=== PATIENT | female | born 1945 | race Caucasian/White ===

== ENCOUNTER → 2017-11-28 15:03 | Outpatient (CLI) | payer MEDICARE, OTHER, SELFPAY ==
--- NOTE | 2017-11-28 15:09 | CT_ITS ---
EXAM: CT LUNG LOW DOSE WO CONTRAST COMPARISON: 11/23/2016 HISTORY: Current smoker with greater than 30 pack-year smoking history asymptomatic ORDERING PHYSICIAN: Ward Kennedy MD PATIENT AGE: 72 years TECHNIQUE: The exam was performed on a GE Light Speed [address] scanner using 2.94 mGy CTDI. A low dose helical CT CHEST was performed on a multi-detector scanner The LDCT was performed in a facility that meets the criteria for the screening program. Data regarding this exam was submitted to ACR which is an approved registry. The order for this exam indicates that it came as a result of a lung cancer screening counseling shared decision-making visit that included all the elements required of such a visit including smoking cessation. The radiologist interpreting this exam meets the [facility] criteria for the LDCT lung cancer screening program. The exam is reported using the Lung-RADS classification scale and reported to the ACR registry. NOTE: THIS STUDY WAS PERFORMED FOR THE SPECIFIC PURPOSES OF LUNG CANCER SCREENING AND IS NOT AN ALTERNATIVE TO DIAGNOSTIC CHEST CT. RADIATION DOSE: CTDI vol(CT dose Index-volume) = 2.94mG DLP (Dose Length Product) = 101.77 mGcm FINDINGS: Centrilobular emphysematous changes are once again noted with scattered areas of pulmonary fibrosis as previously described. The previously noted parenchymal opacity in the right upper lobe posteriorly in the apex is unchanged. Parenchymal opacity in the right upper lobe posteriorly at 13 x 9 mm not significant change. Scattered parenchymal opacities previously described are unchanged. No new suspicious nodular opacities are present. No effusions or infiltrates. IMPRESSION: 1. Lung RADS Category: 3, probably benign 2. Other findings: Centrilobular emphysema RECOMMENDATIONS: 12 month LDCT follow-up
== END ==
PROVIDERS: Family Provider Family Medicine; PCP Family Medicine; Visit Provider Family Medicine
DX: Z12.2 Encounter for screening for malignant neoplasm of respiratory organs (principal); Z87.891 Personal history of nicotine dependence

== ENCOUNTER → 2018-11-26 12:28 | Outpatient (CLI) | payer MEDICARE, OTHER, SELFPAY ==
--- NOTE | 2018-11-26 12:34 | XR_ITS ---
XR DEXA axial skeleton HISTORY: ITS.REASON: OSTEOPAROSIS ORDERING PHYSICIAN: Ward Kennedy MD PATIENT AGE: 73 years COMPARISON: 11/24/2016 FINDINGS: The BMD measured at the Total right femoral neck is 0.535 g/cm squared with a T score of -3.8. This is considered Osteoporotic according to the World Health Organization criteria. Fracture risk is High. Treatment is advised. L1 L4 density has a T score of -0.8 and has increased by 13%. The mean density of the hips has increased by 2%. IMPRESSION: Osteoporosis with high fracture risk. Treatment is advised. Suggest follow-up exam November 2019
--- NOTE | 2018-11-26 12:34 | CT_ITS ---
CT lung screening EXAM: CT LUNG LOW DOSE WO CONTRAST HISTORY: 30 pack-year smoking history asymptomatic for lung cancer ITS.REASON: HX TOBACCO USE ORDERING PHYSICIAN: Ward Kennedy MD PATIENT AGE: 73 years COMPARISON: 11/28/2017 TECHNIQUE: The exam was performed on a GE Light Speed [address] scanner using 2.90 mGy CTDI. A low dose helical CT CHEST was performed on a multi-detector scanner. All CT scans at the facility use one or more dose reduction, viz: automated exposure control, ma/kV adjustment per patient size (including targeted exams where dose is matched to indication, i.e. head), or iterative reconstruction technique. The LDCT was performed in a facility that meets the criteria for the screening program. Data regarding this exam was submitted to ACR which is an approved registry. The order for this exam indicates that it came as a result of a lung cancer screening counseling shard decision-making visit that included all the elements required of such a visit including smoking cessation. The radiologist interpreting this exam meets the CMS criteria for the LDCT lung cancer screening program. The exam is reported using the Lung-RADS classification scale and reported to the ACR registry. NOTE: This study was performed for the specific purposes of lung cancer screening and is not an alternative to diagnostic chest CT. RADIATION DOSE: CTDI vol(CT dose Index-volume) = 2.90mG DLP (Dose Length Product) = mGcm FINDINGS: Scattered fibrotic changes are present as before. There is a stable irregular opacity at approximately 13 x 10 mm in the superior segment of the right upper lobe consistent with an area of fibrosis. Chronic scarring is present in the lung bases. There is volume loss within the lingula and right middle lobe medial aspect. Scattered stable nodular opacities are noted which are felt to be due to parenchymal fibrotic change. There is a 4 mm nodular opacity left upper lobe medially series 4 #39 and an additional 4 mm nodule left upper lobe medially series 4 image #32. These are nonspecific. No new suspicious nodules are evident. There is hyperinflation with attenuation of peripheral pulmonary vessels consistent with COPD with centrilobular disease IMPRESSION: 1. Lung RADS Category: 3, probably benign 2. Other findings: Centrilobular emphysema with scattered fibrotic changes RECOMMENDATIONS: 12 month LDCT follow-up
== END ==
PROVIDERS: PCP Family Medicine; Visit Provider Family Medicine
DX: Z12.2 Encounter for screening for malignant neoplasm of respiratory organs (principal); Z87.891 Personal history of nicotine dependence; M81.0 Age-related osteoporosis without current pathological fracture
CPT/HCPCS: 77080

== ENCOUNTER → 2020-12-04 14:22 | Outpatient (CLI) | payer MEDICARE, OTHER, SELFPAY ==
--- NOTE | 2020-12-04 14:26 | XR_ITS ---
PROCEDURE: XR DEXA AXIAL SKELETON CLINICAL HISTORY: AGE-RELATED OSTEOPOROSIS W/O CURRENT FRACTURE COMPARISON: CR DEXAAX XR DEXA axial skeleton from 11/26/2018 FINDINGS: The right hip BMD is 0.416 with a T-score of -3.9. The left hip BMD is 0.455 with a T-score of -3.6. The lumbar spine BMD is 1.000 with a T-score of -0.4. Previously the lowest density was in the right femur with a T-score -3.8 IMPRESSION: This patient is considered osteoporotic according to the World Health Organization criteria. Fracture risk is high. Treatment is advised. Based on these results a follow-up exam is recommended in 1 year. Dictated by: Deniz Sesay MD 12/05/2020 09:07 Deniz Sesay MD in [place] 12/05/2020 09:07
--- NOTE | 2020-12-04 14:27 | CT_ITS ---
PROCEDURE: CT LUNG SCREENING CLINICAL INDICATION: HX OF NICOTINE DEPENDENCE 40 pack-year smoking history COMPARISON: CT LUNGSCREEN CT lung screening from 11/26/2018 TECHNIQUE: The exam was performed on a GE Light Speed [address] scanner using 2.90 mGy CTDI. A low dose helical CT CHEST was performed on a multi-detector scanner. All CT scans at the facility use one or more dose reduction, viz: automated exposure control, ma/kV adjustment per patient size (including targeted exams where dose is matched to indication, i.e. head), or iterative reconstruction technique. The LDCT was performed in a facility that meets the criteria for the screening program. Data regarding this exam was submitted to ACR which is an approved registry. The order for this exam indicates that it came as a result of a lung cancer screening counseling shard decision-making visit that included all the elements required of such a visit including smoking cessation. The radiologist interpreting this exam meets the CMS criteria for the LDCT lung cancer screening program. The exam is reported using the Lung-RADS classification scale and reported to the ACR registry. NOTE: This study was performed for the specific purposes of lung cancer screening and is not an alternative to diagnostic chest CT. RADIATION DOSE: CTDI vol(CT dose Index-volume) = 2.90mG DLP (Dose Length Product) = 104.46 mGcm FINDINGS: COPD with centrilobular emphysema and scattered areas of scarring. Stable 15 mm irregular opacity in the superior segment the right lower lobe consistent with an area of scarring. No new suspicious nodules are identified. OTHER FINDINGS: No other pertinent findings evident. IMPRESSION: Lung-RADS Category 2 Benign Appearance or Behavior Follow-up: Continue annual screening with LDCT in 12 months Dictated by: Deniz Sesay MD 12/06/2020 10:02 Deniz Sesay MD in [place] 12/06/2020 10:02
== END ==
PROVIDERS: PCP Family Medicine; Visit Provider Family Medicine
DX: M81.0 Age-related osteoporosis without current pathological fracture (principal); Z87.891 Personal history of nicotine dependence; Z12.2 Encounter for screening for malignant neoplasm of respiratory organs
CPT/HCPCS: 71271; 77080

== ENCOUNTER → 2020-12-15 11:19 | Outpatient (CLI) | payer MEDICARE, OTHER, SELFPAY ==
[2020-12-15 13:48] LABS: Coronavirus 19 IgG Antibody Positive (Negative); Coronavirus 19 IgM Antibody Negative (Negative)
== END ==
PROVIDERS: Visit Provider Surgery
DX: Z01.818 Encounter for other preprocedural examination (principal); Z20.822 Contact with and (suspected) exposure to COVID-19; Z12.11 Encounter for screening for malignant neoplasm of colon; Z86.010 Personal history of colon polyps
CPT/HCPCS: 36415; 86328

== ENCOUNTER 2020-12-17 08:22 | Day surgery (SDC) | payer MEDICARE, OTHER, SELFPAY ==
[2020-12-14 10:56] VITALS: BMI 19.3
[2020-12-17] VITALS (8 sets, daily range): BP systolic 90–129; BP diastolic 48–78; PULSE 57–67; RESP 16–18; TEMP 35.9–36.2; O2SAT 94–98
--- NOTE | 2020-12-17 10:43 | HMH.SCOPE ---
- Procedure: Date: 12/17/20 Patient Date of :: 1945 Procedure Performed:: Colonoscopy with biopsy Indications:: History of polyps. Status post right hemicolectomy (2015) secondary to large adenomatous polyp not amenable to colonoscopic removal. Performing Provider:: Artis Singh MD Referring Provider:: . Sedation:: Monitored anesthesia care Procedure:: After informed consent was obtained the patient was taken to the endoscopy suite. Sedation ensued after the patient was transferred to the left lateral decubitus position. Pulse, blood pressure, and oxygen saturation were monitored throughout the procedure. Digital rectal exam revealed no significant abnormality. The colonoscope was placed in position. The entire remaining colon was evaluated. The colonoscope was carefully removed and the patient was transferred to recovery in stable condition. Please see findings and specimens below for detail. Findings:: Bowel preparation moderate Significant sigmoid diverticulosis Hemorrhoidal cushions/tags Fairly severe spasticity and lack of relaxation of the sigmoid colon Anastomosis appeared normal Hyperplastic-appearing polyps at 15 cm (cluster) Specimens:: Multiple biopsies of hyperplastic-appearing polyps around 15 cm Recommendations:: Timing of repeat colonoscopy is pending pathology but will likely be between 1-2 years secondary to history of large complex polyp requiring right hemicolectomy, moderate bowel preparation, and sigmoid spasticity/lack of relaxation. Complications:: No immediate Estimated blood obtained (mL): 1
--- NOTE | 2020-12-17 13:52 | HMH.ANESCL ---
[facility] Anesthesia Checklist - Patient Identification Patient Identification: Arm Band - Structural Data Admitted From: Home Planned Operative Procedure/s: Colonoscopy Consent for Planned Operative Procedure(s) Verified: Yes Verified Documents: Surgical Consent, History and Physical - Airway Assessment C-Spine Mobility Assessed: Yes TMJ Mobility Assessed: Yes Dentition: Good Dentition - Neurological Assessment Level of Consciousness: Awake, Alert - Anesthesia Plan Anesthesia Risk discussed: Yes Anesthesia Plan: Verified ASA Class: II Anesthesia Type: [facility] History Medical History: Reports:: Hypertension Denies:: Cancer, Diabetes Mellitus Type 1, Diabetes Mellitus Type 2, Internal Pacemaker, MRSA, Seizures *Have you ever received a pneumonia vaccine?: Yes *Have you received a flu vaccine this season?: Yes Anesthesia experience/problems:: None Other Surgeries: Yes: Colonoscopy. No: Pacemaker Amputation: No Fractures: No - *Social History Last grade of school completed: Some college Smoking Status: Former smoker Tobacco Type: cigarettes # Packs/Day (cigarettes): 1 #Yrs smoked (if former smoker): 1 Alcohol Intake: never Alcohol Intake Frequency:: 0-2 drinks per day Substance Use Type: denies use *Occupational Status:: employed, retired Housing: house Household Members: spouse *Travel in the last 8 weeks: None Family Hx:: Cancer, Coronary Artery Disease, Hypertension
== END 2020-12-17 11:40 | disposition home or self-care (01) ==
LOC: OUTP 08:26
PROVIDERS: PCP Family Medicine; Visit Provider Surgery
PROC: 0DJD8ZZ Inspection of Lower Intestinal Tract, Via Natural or Artificial Opening Endoscopic (ICD-10-PCS; CPT 45380; principal; 2020-12-17 09:30)
DX: K57.30 Diverticulosis of large intestine without perforation or abscess without bleeding (principal); Z12.11 Encounter for screening for malignant neoplasm of colon; K64.0 First degree hemorrhoids; K58.9 Irritable bowel syndrome, unspecified; K62.1 Rectal polyp; Z86.010 Personal history of colon polyps; Z90.49 Acquired absence of other specified parts of digestive tract; I10 Essential (primary) hypertension; Z87.891 Personal history of nicotine dependence; Z80.9 Family history of malignant neoplasm, unspecified; Z82.49 Family history of ischemic heart disease and other diseases of the circulatory system; Z79.899 Other long term (current) drug therapy
CPT/HCPCS: 45380; 88305; J1610

== ENCOUNTER 2021-03-15 08:50 | Outpatient (CLI) | payer MEDICARE, OTHER, SELFPAY ==
[2021-03-15 09:00] VITALS: BP 121/70; PULSE 66; RESP 18; TEMP 36.4; O2SAT 98
== END 2021-03-15 09:27 | disposition home or self-care (01) ==
LOC: INF 08:50
PROVIDERS: Visit Provider Family Medicine
DX: M81.0 Age-related osteoporosis without current pathological fracture (principal)
CPT/HCPCS: 96372; J3111

== ENCOUNTER 2021-04-12 08:34 | Outpatient (CLI) | payer MEDICARE, OTHER, SELFPAY ==
[2021-04-12 08:42] VITALS: BP 139/73; PULSE 59; RESP 20; TEMP 36.9; O2SAT 97
--- NOTE | 2021-04-12 09:23 | PC.NURSE ---
injection given in each arm
== END 2021-04-12 09:23 | disposition home or self-care (01) ==
LOC: INF 08:34
PROVIDERS: Visit Provider Family Medicine
DX: M81.0 Age-related osteoporosis without current pathological fracture (principal)
CPT/HCPCS: 96372; J3111

== ENCOUNTER 2021-05-17 08:42 | Outpatient (CLI) | payer MEDICARE, OTHER, SELFPAY ==
[2021-05-17 09:08] VITALS: BP 131/65; PULSE 75; RESP 18; TEMP 36.3; O2SAT 96
== END 2021-05-17 09:29 | disposition home or self-care (01) ==
LOC: INF 08:45
PROVIDERS: PCP Family Medicine; Visit Provider Family Medicine
DX: M81.0 Age-related osteoporosis without current pathological fracture (principal)
CPT/HCPCS: 96372; J3111

== ENCOUNTER 2021-06-17 08:29 | Outpatient (CLI) | payer MEDICARE, OTHER, SELFPAY ==
[2021-06-17 08:58] VITALS: BP 144/76; PULSE 66; RESP 18; O2SAT 97
== END 2021-06-17 08:58 | disposition home or self-care (01) ==
LOC: INF 08:31
PROVIDERS: PCP Family Medicine; Visit Provider Family Medicine
DX: M81.0 Age-related osteoporosis without current pathological fracture (principal)
CPT/HCPCS: 96372

== ENCOUNTER 2021-07-14 08:27 | Outpatient (CLI) | payer MEDICARE, OTHER, SELFPAY ==
[2021-07-14 08:42] VITALS: BP 138/80; PULSE 65; RESP 18; TEMP 36.3; O2SAT 97
== END 2021-07-14 09:04 | disposition home or self-care (01) ==
LOC: INF 08:28
PROVIDERS: PCP Family Medicine; Visit Provider Family Medicine
DX: M81.0 Age-related osteoporosis without current pathological fracture (principal)
CPT/HCPCS: 96372; J3111

== ENCOUNTER 2021-08-18 09:40 | Outpatient (CLI) | payer MEDICARE, OTHER, SELFPAY ==
[2021-08-18 09:57] VITALS: BP 110/65; PULSE 66; RESP 17; TEMP 36.8; O2SAT 96
== END 2021-08-18 09:59 | disposition home or self-care (01) ==
LOC: INF 09:41
PROVIDERS: PCP Family Medicine; Visit Provider Family Medicine
DX: M81.0 Age-related osteoporosis without current pathological fracture (principal)
CPT/HCPCS: 96372; J3111

== ENCOUNTER 2021-09-22 08:31 | Outpatient (CLI) | payer MEDICARE, OTHER, SELFPAY ==
[2021-09-22 09:00] VITALS: BP 148/86; PULSE 62; RESP 18; TEMP 36.2; O2SAT 99
== END 2021-09-22 09:00 | disposition home or self-care (01) ==
LOC: INF 08:32
PROVIDERS: PCP Family Medicine; Visit Provider Family Medicine
DX: M81.0 Age-related osteoporosis without current pathological fracture (principal)
CPT/HCPCS: 96372; J3111

== ENCOUNTER 2021-10-27 08:20 | Outpatient (CLI) | payer MEDICARE, OTHER, SELFPAY ==
[2021-10-27 08:42] VITALS: BP 145/75; PULSE 66; RESP 20; TEMP 36.1; O2SAT 99
== END 2021-10-27 08:57 | disposition home or self-care (01) ==
LOC: INF 08:22
PROVIDERS: PCP Family Medicine; Visit Provider Family Medicine
DX: M81.0 Age-related osteoporosis without current pathological fracture (principal)
CPT/HCPCS: 96372; J3111

== ENCOUNTER 2021-11-24 08:27 | Outpatient (CLI) | payer MEDICARE, OTHER, SELFPAY ==
[2021-11-24 08:40] VITALS: BP 129/71; PULSE 63; RESP 20; TEMP 36.1; O2SAT 99
== END 2021-11-24 08:44 | disposition home or self-care (01) ==
LOC: INF 08:28
PROVIDERS: PCP Family Medicine; Visit Provider Family Medicine
DX: M81.0 Age-related osteoporosis without current pathological fracture (principal)
CPT/HCPCS: 96372; J3111

== ENCOUNTER 2021-12-22 08:21 | Outpatient (CLI) | payer MEDICARE, OTHER, SELFPAY ==
[2021-12-22 08:45] VITALS: BP 129/73; PULSE 62; RESP 18; O2SAT 98
== END 2021-12-22 08:45 | disposition hospice, home (50) ==
LOC: INF 08:22
PROVIDERS: PCP Family Medicine; Visit Provider Family Medicine
DX: M81.0 Age-related osteoporosis without current pathological fracture (principal)
CPT/HCPCS: 96372; J3111

== ENCOUNTER 2022-01-21 08:25 | Outpatient (CLI) | payer MEDICARE, OTHER, SELFPAY ==
[2022-01-21 08:35] VITALS: BP 128/73; PULSE 63; RESP 18; O2SAT 98
== END 2022-01-21 08:55 | disposition home or self-care (01) ==
LOC: INF 08:26
PROVIDERS: PCP Family Medicine; Visit Provider Family Medicine
DX: M81.0 Age-related osteoporosis without current pathological fracture (principal)
CPT/HCPCS: 96372; J3111

== ENCOUNTER 2022-02-22 08:20 | Outpatient (CLI) | payer MEDICARE, OTHER, SELFPAY ==
[2022-02-22 09:24] VITALS: BP 134/75; PULSE 74; O2SAT 99
== END 2022-02-22 09:24 | disposition home or self-care (01) ==
PROVIDERS: PCP Family Medicine; Visit Provider Family Medicine
DX: M81.0 Age-related osteoporosis without current pathological fracture (principal)
CPT/HCPCS: 96372; J3111

== ENCOUNTER → 2022-12-20 08:18 | Outpatient (CLI) | payer MEDICARE, OTHER, SELFPAY ==
--- NOTE | 2022-12-20 08:27 | CT_ITS ---
FINAL REPORT CLINICAL HISTORY: SMOKER x 50 yrs 1/2 pk per day COMPARISON: November 2020; November 2018 FINDINGS: Low-Dose Chest CT CTDI vol (mGy): 2.90 DLP (mGy-cm): 115.68 Axial images were obtained from the lung apex to the mid abdomen by computed tomography. Low-dose protocol was utilized. FINDINGS: CHEST: There is no mediastinal, hilar or axillary adenopathy. The heart is proper size. There is no pericardial or pleural effusion. Limited images of the upper abdomen demonstrate calcified granulomas in the liver and spleen. Lung window images demonstrate persistent linear scarring in the posterior right upper lobe to be stable. A subtle nodular density in the superior left lower lobe is stable from 2019. There is stable scarring in the lingula and anterior right lower lobe. There are no new masses or pulmonary nodules. IMPRESSION: Lung RADS category 1. Recommend 12 month follow-up low-dose chest CT. Reviewed, Interpreted and Dictated by Ron Mack MD Transcribed by Will Pineda Authenticated and [facility]
--- NOTE | 2022-12-20 08:27 | XR_ITS ---
FINAL REPORT TECHNIQUE: Bone densitometry calculations of the lumbar spine and hip were obtained. CLINICAL HISTORY: SCREENING COMPARISON: 12/04/2020 FINDINGS: DEXA BONE DENSITY AXIAL SKELETON Using L1-4, the bone mineral density of the spine is 1.019 g/cm2, corresponding to T-score of -0.3. Previously measured 1.000 g/cm2, corresponding to T-score of -0.4. Note these values may be artificially elevated secondary to degenerative disc disease. Using the left hip, the bone mineral density of the femoral neck is 0.469 g/cm2, corresponding to a T-score of -3.4. Previously measured 0.455 g/cm2, corresponding to T-score of -3.6. Using the right hip, the bone mineral density of the femoral neck is 0.492 g/cm2, corresponding to a T-score of -3.2. Previously measured 0.416 g/cm2, corresponding to T-score of -3.9. NOTE: T-score: Standard deviation compared with peak bone mass of young adult mean. *Following the recommendations of the International Society of Bone densitometry, classification of hip BMD is based on the lower of two T-scores; total hip or femoral neck. IMPRESSION: Osteoporosis: Lowest T-score is at or below -2.5. This patient's T-score meets the World Health Organization criteria for osteoporosis. Reviewed, Interpreted and Dictated by Ron Mack MD Transcribed by Bertha Kaiser Authenticated and [facility]
== END ==
PROVIDERS: PCP Family Medicine; Visit Provider Family Medicine
DX: Z87.891 Personal history of nicotine dependence (principal); M81.0 Age-related osteoporosis without current pathological fracture; Z12.2 Encounter for screening for malignant neoplasm of respiratory organs
CPT/HCPCS: 71271; 77080

== ENCOUNTER 2023-01-04 08:17 | Outpatient (CLI) | payer MEDICARE, OTHER, SELFPAY ==
[2023-01-04 08:30] VITALS: BP 141/83; PULSE 64; RESP 18; TEMP 36.8; O2SAT 98
== END 2023-01-04 08:45 | disposition home or self-care (01) ==
LOC: INF 08:17
PROVIDERS: PCP Family Medicine; Visit Provider Family Medicine
DX: M81.0 Age-related osteoporosis without current pathological fracture (principal)
CPT/HCPCS: 96372; J0897

== ENCOUNTER 2023-07-12 08:57 | Outpatient (CLI) | payer MEDICARE, OTHER, SELFPAY ==
[2023-07-12 09:25] VITALS: BP 136/64; PULSE 70; RESP 16; O2SAT 97
== END 2023-07-12 09:25 | disposition home or self-care (01) ==
LOC: INF 08:58
PROVIDERS: PCP Family Medicine; Visit Provider Family Medicine
DX: M81.0 Age-related osteoporosis without current pathological fracture (principal)
CPT/HCPCS: 96372; J0897

== ENCOUNTER 2023-11-15 08:38 | Outpatient (CLI) | payer MEDICARE, OTHER, SELFPAY ==
--- NOTE | 2023-11-15 08:42 | CT_ITS ---
FINAL REPORT TECHNIQUE: Thin section axial images were obtained from the lung bases to the pubic symphysis without IV contrast. Coronal and sagittal reconstruction images were obtained from the axial data. Exam was performed using dose reduction technique. CLINICAL HISTORY: hernia COMPARISON: None FINDINGS: There is a lingular and right middle lobe bronchiectasis present. There is an abnormal contour of the spleen, that may be secondary to remote splenic infarcts. There are no renal or ureteral stones. There is no hydronephrosis or perinephric stranding. There is a hypodense right renal lesion, that may represent a renal cyst. The gallbladder is present. The remaining unenhanced solid abdominal organs are unremarkable. There are changes of a prior right hemicolectomy. There is no evidence of small bowel obstruction. The appendix is absent. GI tract is without acute abnormality. There are multiple diverticula in the sigmoid colon without evidence of acute inflammatory change. There is a right inguinal hernia containing fat and a small bowel loop. There is no lymphadenopathy or ascites. No acute osseous abnormality is identified. IMPRESSION: A right inguinal hernia is present with fat and a small bowel loop. Hypodense right renal lesion, that may represent a cyst. Ultrasound could confirm if clinically indicated. Diverticulosis of the sigmoid colon without acute diverticulitis. Reviewed, Interpreted and Dictated by Taylor Martinez MD Transcribed by Ana Urena Authenticated and [facility]
== END 2023-11-15 23:59 ==
LOC: RAD 08:39
PROVIDERS: PCP Family Medicine; Visit Provider Surgery
DX: K40.90 Unilateral inguinal hernia, without obstruction or gangrene, not specified as recurrent (principal)
CPT/HCPCS: 74176

== ENCOUNTER 2023-11-28 15:50 | Outpatient (CLI) | payer MEDICARE, OTHER, SELFPAY ==
--- NOTE | 2023-11-28 15:59 | US_ITS ---
FINAL REPORT CLINICAL HISTORY: Right renal lesion seen on CT. COMPARISON: CT dated 11/15/2023 FINDINGS: RENAL ULTRASOUND: The right kidney measures 8.5 cm in size. There is no evidence of hydronephrosis or perinephric fluid collections. There is a 2 cm cystic mass in the right kidney with several septations within the cyst, favor a mildly complicated cyst over neoplasm. The left kidney measures 9.2 cm in length. No evidence of hydronephrosis, perinephric fluid collections, or masses are seen. The spleen is not well-visualized on this examination. IMPRESSION: 2 cm cystic mass in the right kidney with several septations within the cyst, favor a mildly complicated cyst over neoplasm. Would suggest renal mass protocol CT or MRI for further evaluation. Reviewed, Interpreted and Dictated by Guillermo Morgan III, MD Transcribed by Ana Urena Authenticated and [facility]
== END 2023-11-28 23:59 ==
PROVIDERS: PCP Family Medicine; Visit Provider Surgery
DX: N28.1 Cyst of kidney, acquired (principal)
CPT/HCPCS: 76770

== ENCOUNTER 2023-12-25 08:58 | Outpatient (CLI) | payer MEDICARE, OTHER, SELFPAY ==
--- NOTE | 2023-12-25 09:21 | MR_ITS ---
FINAL REPORT CLINICAL HISTORY: RIGHT RENAL MASS COMPARISON: Ultrasound kidneys dated 11/28/2023, CT abdomen and pelvis dated 11/15/2023. FINDINGS: Multiplanar MR imaging of the abdomen was performed without and with contrast. Images of the liver reveal no evidence of mass. There is no evidence of biliary ductal dilatation. The gallbladder has an unremarkable appearance. There is a 19 mm mass in the medial lower pole of the right kidney which appears to have several septa within it. This does not show evidence of contrast-enhancement. Findings are consistent with a mildly complicated cyst (Bosniak 2) there is mild bilateral renal scarring and cortical thinning. No abnormal fluid collection is seen. IMPRESSION: Probable mildly complicated cyst in the lower pole of the right kidney. Further evaluation with MR or renal mass protocol CT is recommended in 12 months to evaluate stability. Reviewed, Interpreted and Dictated by Guillermo Morgan III, MD Transcribed by Sindy Fernandes Authenticated and . [facility]
[2023-12-25 09:39] LABS: Blood Urea Nitrogen 17 mg/dl (7-17); Estimated Glomerular Filt Rate 70 ml/min (>60); GFR (African American) 84 ML/MIN (>60)
[2023-12-25] MEDS: SODIUM CHLORIDE 0.9% 10ML SYR (RAD ONLY) 10 ML IV (10:17)
[2023-12-25] MEDS: SODIUM CHLORIDE 0.9% 50ML BAG 35 ML IV (10:17)
[2023-12-25] MEDS: GADOTERIDOL INJ 17ML SYRINGE 10 ML IV (10:18)
== END 2023-12-25 23:59 ==
LOC: RAD 09:00
PROVIDERS: PCP Family Medicine; Visit Provider Family Medicine
DX: N28.89 Other specified disorders of kidney and ureter (principal)
CPT/HCPCS: 36415; 74183; 82565; 84520; A9576

== ENCOUNTER 2024-01-12 08:55 | Outpatient (CLI) | payer MEDICARE, OTHER, SELFPAY ==
[2024-01-12 09:06] VITALS: BP 137/68; PULSE 67; RESP 18; O2SAT 98
[2024-01-12] MEDS: DENOSUMAB 60 MG/ML SYRINGE SQ (09:06)
== END 2024-01-12 09:20 | disposition home or self-care (01) ==
LOC: INF 08:56
PROVIDERS: PCP Family Medicine; Visit Provider Family Medicine
DX: M81.0 Age-related osteoporosis without current pathological fracture (principal)
CPT/HCPCS: 96372; J0897

== ENCOUNTER 2024-02-14 11:21 | Outpatient (CLI) | payer MEDICARE, OTHER, SELFPAY ==
--- NOTE | 2024-02-14 11:22 | ECG_ITS ---
APPROVED REPORT Exam: Resting ECG HR:77 bpm ECG Measurements Heart Rate 77 AXES PA 144 P 76 QRSd 87 QRS 21 QT 372 T 66 QTc 404 Conclusion SINUS RHYTHM WITH FREQUENT SUPRAVENTRICULAR PREMATURE COMPLEXES ABNORMAL RHYTHM ECG UNCONFIRMED REPORT Electronically signed by : Ward Wei MD 02/17/2024 08:37:20
[2024-02-14 11:36] LABS: Microscopic, Urine URINE MICROSCOPIC (MICROSCOPIC)
[2024-02-14 11:55] LABS: Basophils # 0.1 K/mm3 (0-0.2); Basophils % 0.7 % (0.1-2.0); Eosinophils # 0.2 K/mm3 (0.0-0.4); Eosinophils % 1.9 % (0.1-12.0); Hematocrit 43.1 % (37.0-47.0); Hemoglobin 13.9 g/dL (12.2-16.2); Lymphocytes # 2.4 K/mm3 (0.7-4.5); Lymphocytes % 26.1 % (10-50); Mean Corpuscular HGB Conc 32.2 g/dL (31.8-35.4); Mean Corpuscular Volume 108.6 fl (81-99); Mean Platelet Volume 8.2 fl (7.4-10.4); Monocytes # 0.6 K/mm3 (0.1-1.0); Monocytes % 6.6 % (1.7-9.3); Neutrophils # 5.9 K/mm3 (1.8-7.8); Neutrophils % 64.7 % (37.0-80.0); Platelet Count 273 K/mm3 (142-424); Red Blood Count 3.97 M/mm3 (4.20-5.40); Red Cell Distribution Width 13.3 % (11.5-17.5); White Blood Count 9.1 K/mm3 (4.8-10.8)
[2024-02-14 12:33] LABS: Blood Urea Nitrogen 19 mg/dl (7-17); Calcium 9.7 mg/dl (8.4-10.2); Carbon Dioxide 27 mmol/L (22.0-30.0); Chloride 98 mmol/L (98-107); Estimated Glomerular Filt Rate 61 ml/min (>60); GFR (African American) 73 ML/MIN (>60); Glucose 94 mg/dl (74-100); Sodium 136 mmol/L (136-145)
[2024-02-14 13:19] LABS: Appearance,Urine CLEAR (Clear); Bilirubin,Urine Negative (Negative); Blood, Urine Negative (Negative); Color,Urine YELLOW (Yellow); Glucose,Urine (UA) Negative (Negative); Ketones,Urine TRACE (Negative); Leukocyte Esterase,Urine Negative (Negative); Nitrate,Urine Negative (Negative); PH,Urine 5.5 (5.0-8.5); Protein,Urine Negative (Negative); Specific Gravity, Urine 1.025 (1.005-1.030); Urobilinogen,Urine 0.2 EU/dl (0.2)
[2024-02-14 14:11] LABS: Bacteria,Urine 1+ /lpf; WBC,Urine Occasional #/hpf (0-3)
== END 2024-02-14 23:59 | disposition home or self-care (01) ==
LOC: LAB 11:22
PROVIDERS: PCP Family Medicine; Visit Provider Surgery
DX: K40.90 Unilateral inguinal hernia, without obstruction or gangrene, not specified as recurrent (principal)
CPT/HCPCS: 36415; 80048; 81001; 85025; 93005

== ENCOUNTER 2024-03-01 06:00 | Day surgery (SDC) | payer MEDICARE, OTHER, SELFPAY ==
[2024-02-29 08:41] VITALS: BMI 17.7
[2024-03-01] VITALS (11 sets, daily range): BP systolic 103–131; BP diastolic 63–72; PULSE 83–86; RESP 14–18; TEMP 36.3–43; O2SAT 92–97; BMI 17.7
[2024-03-01] MEDS: LACTATED RINGERS 1000ML 1,000 ML 25 ML IV (06:41)
--- NOTE | 2024-03-01 06:46 | EXP.ANES.CKL ---
[facility] Disclaimer: The information contained in this section may have been updated after the patient was seen, as this information can be updated by other users. Medical History Normal colonoscopy Diverticulosis HLD (hyperlipidemia) HTN (hypertension) Surgical History (Updated 03/01/24 @ 06:37 by Luz Fermin RN) History of bowel resection History of hernia repair Family History Other Cancer Coronary artery disease Hypertension Social History Smoking Status: Former smoker tobacco type: cigarettes packs per day: 1 second hand exposure: No alcohol intake: never substance use type: denies use current occupational status: retired Travel in the last 8 weeks: None household members: spouse housing: house current occupational exposures/hazards: No caffeine: Yes [facility] Anesthesia Checklist Patient Identification Patient Identification: Arm Band and Family Structural Data Admitted From: Home Planned Operative Procedure/s: Right Inguinal Hernia Repair Consent for Planned Operative Procedure(s) Verified: Yes Verified Documents: Surgical Consent and History and Physical NPO Status Verified Time NPO: 00:00 Additional verifications Patient : No Anesthesia Reactions: No Hx Blood Transfusions: No Blood Transfusion Reaction: No Cephalosporin Allergy: No Previous Colonoscopy: Yes Airway Assessment Mallampati Score:: Class II C-Spine Mobility Assessed: Yes TMJ Mobility Assessed: Yes Dentition: Dentures-good fit Neurological Assessment Level of Consciousness: Awake, Alert, Appropriate and Follows Commands Hx Seizures: No Numbness or tingling in extremities: No Anesthesia Plan Anesthesia Risk discussed: Yes ASA Class: II Anesthesia Type: General Preoperative Comments Pre-Operative Comments: History of bowel resection. Hypertension.
[2024-03-01] MEDS: LIDOCAINE 1% 20ML MDV 20 ML (08:00)
[2024-03-01] MEDS: CEFAZOLIN SODIUM 1GM ADV 1 GM IV (08:01)
--- NOTE | 2024-03-01 08:44 | EXP.OP.NOTE ---
Date of procedure: 03/01/24 Pre-op Diagnosis:: Right inguinal hernia Post-op Diagnosis:: Same Procedure performed:: Open right inguinal hernia repair Surgeon:: Artis Singh MD MAGNET MAKER:: Romain Vaz Anesthesia: GETA Estimated blood loss (mL): 15 Operative findings:: Complex indirect defect Operative note:: After informed consent was obtained the patient was taken to the operating room and placed in the supine position. General anesthesia was induced and her abdomen and groin were prepped and draped in a sterile fashion. After infiltration with local anesthetic an oblique right groin incision was made. Electrocautery was utilized to transect through Justino's fascia to the level of the external aponeurosis. The external aponeurosis was sharply opened to the level of the external ring. The contents of the canal were carefully elevated. A complex indirect defect was encountered. A combination of blunt dissection and electrocautery was utilized to free the hernia sac from the round ligament. The hernia sac was returned to the abdominal cavity. A large PerFix plug was secured in position with interrupted Ethibond. The PerFix overlay was then secured to the shelving edge inferiorly and fascial margin superiorly with interrupted Ethibond. The external aponeurosis was reapproximated with running Vicryl suture. Justino's fascia was closed in same manner. Skin was closed with the INSORB stapler and dressings were applied. The patient was transferred to recovery in stable condition after extubation. Condition: stable Disposition: PACU Specimens:: None Complications:: No immediate
--- NOTE | 2024-03-01 08:56 | EXP.ANES.I ---
[facility] Anesthesia Record Part I Anesthesia Record I Intake, IV Amount: 1,400 Hydration: Adequate Estimated blood loss (mL): 10 Urine output (mL): 400 Blood Products used (#): none Blood Pressure: 112/67 SaO2: 93 Pulse Rate: 85 Airway Patency: Patent Respiratory Rate: 14 Temperature: 97.6 F Patient is:: Drowsy and Stable Stable to PACU at:: 08:50
--- NOTE | 2024-03-01 13:07 | EXP.ANES.II ---
[facility] Anesthesia Record Part II Anesthesia Record Part II Discharge Time: 09:20 Destination: Surgical Day Care (OP Surgery) PACU nurse assessment reviewed?: Yes Patient Condition:: Good Anesthesia Complications:: None Swallowing reflex intact?: Yes Airway Patency: Patent Cyanosis?: No Blood Pressure: 110/72 SaO2: 94 Respiratory Rate: 14 Pulse Rate: 84 Temperature: 97.8 F Mental Status: Alert & Oriented Pain level:: 0 Nausea and/or vomitting:: None Intake, IV Amount: 0 Hydration: Adequate
== END 2024-03-01 09:51 | disposition home or self-care (01) ==
PROVIDERS: PCP Family Medicine; Visit Provider Surgery
PROC: (CPT 49505; principal; 2024-03-01 07:30)
DX: K40.90 Unilateral inguinal hernia, without obstruction or gangrene, not specified as recurrent (principal)
CPT/HCPCS: 49505; 96374; J3490; J0690; J1100; J2250; J2405; J3010; J7120

== ENCOUNTER 2024-07-24 08:46 | Outpatient (CLI) | payer MEDICARE, OTHER, SELFPAY ==
[2024-07-24] MEDS: DENOSUMAB 60 MG/ML SYRINGE SUBCUT (09:02)
[2024-07-24 09:04] VITALS: BP 127/74; PULSE 80; RESP 18; TEMP 36.9; O2SAT 97
== END 2024-07-24 09:04 | disposition home or self-care (01) ==
LOC: INF 08:48
PROVIDERS: PCP Family Medicine; Visit Provider Family Medicine
DX: M81.0 Age-related osteoporosis without current pathological fracture (principal)
CPT/HCPCS: 96372; J0897

== ENCOUNTER 2025-01-22 09:00 | Outpatient (CLI) | payer MEDICARE, OTHER, SELFPAY ==
[2025-01-22 09:07] VITALS: BP 131/77; PULSE 81; RESP 20; TEMP 36.6; O2SAT 98
[2025-01-22] MEDS: DENOSUMAB 60 MG/ML SYRINGE SUBCUT (09:07)
== END 2025-01-22 09:21 | disposition home or self-care (01) ==
LOC: INF 09:02
PROVIDERS: PCP Family Medicine; Visit Provider Family Medicine
DX: M81.0 Age-related osteoporosis without current pathological fracture (principal)
CPT/HCPCS: 96372; J0897

== ENCOUNTER 2025-07-25 08:59 | Outpatient (CLI) | payer MEDICARE, OTHER, SELFPAY ==
--- OUTSIDE RECORDS SUMMARY | 2015-01-15 08:18 | XMS_ITS | Continuity of Care Document ---
Author Organization [facility] Address [address] [place] [id number] Phone Care Team Providers Care Fire Alarm Installer Name Role Phone Manjula SOUTH, Dung Unavailable Unavailable Allergies, Adverse Reactions, Alerts Substance Reaction Status Criticality MEPERIDINE HCL Active No Informatio n Medications Medication Instructions Dosage Effective Dates (start - stop) Status Comments prednisolone acetate 1 % eye drops,suspension instill 1 drop by ophthalmic route every day OU - Active prednisolone 5 mg tablet - Active Bystolic 10 mg tablet - Active Procedures Procedure Date EYE EXAM, COMPREHENSIVE, ESTABLISHED PAT IENT Meds document w/o verifica PT TOBACCO USE DONE RCVD TLK EYE EXAM, COMPREHENSIVE, ESTABLISHED PAT IENT Meds document w/o verifica EYE EXAM & TREATMENT Meds document w/o verifica Advance Directives Directive Yes / No Effective Date File Name No Information Encounters Encounter Description Practice Location Reason(s) For Visit Diagnoses Date Provider Providers Copied on Encounter [facility], [address] [place] [address], [id number], tel:[phone] ELDA Fam [facility] No Information Dec-3 0-201 5 Manjula Razo. [address] [place] [address], [id number] , . tel:[phone] [employer] [facility], [address] [place] [address], [address] [place] [address] tel:[phone] ELDA STALLWORTH No Information 4 Piracha Dung. [address] [place] [address], [address] [place] [address]. tel: [phone] [employer] [facility], [address] [place] [address], [address] [place] [address] tel:[phone] ELDA STALLWORTH Lens replaced by other meansCornea replaced by transplantOther macular scars of retina 4 Piracha Dung. [address] [place] [address], [address] [place] [address] , . tel: [phone] [employer] [facility], [address] [place] [address], [address] [place] [address] tel:[phone] ELDA STALLWORTH No Information 2 Piracha Dung. [address] [place] [address], [address] [place] [address] , . tel: [phone] [employer] [facility], [address] [place] [address], [address] [place] [address], tel:[phone] ELDA STALLWORTH No Information 1 Piracha Dung. [address] [place] [address], [address] [place] [address] , . tel: [phone] Family History Family Member Type Diagnosis Age At Onset Problem (finding) Family history of Cance r Problem (finding) Family history of Heart Disease Problem (finding) Family history of glauc denys Payers Payer name Insurance type Covered constitution party ID Authoriza tion(s) Medicare [place] [id number] [facility] [id number] Social History Type Description Quantity Date Captured Comments Sex Female Smoking Status No Information Chief Complaint And Reason For Visit No Information Reason For Referral Reason For Referral No Information Plan Of Treatment Date Type Action Status Goal Tobacco cessation counseling completed History Of Present Illness Encounter Date Complaint History Of Prese nt Illness No Information Functional Status Date Functional Assessmen t No Information Instructions Date Instruction Additional Infor hallie P/EK OU - Ek's look great, Cont Fml qd ou Related to P/EK - 1 yr EK ck-Dr Rodrigez Related to P/EK Assessments Type Assessment Date No Information Patient Care Teams Name Effective Dates (start - stop) Status Members No Information
--- OUTSIDE RECORDS SUMMARY | 2025-06-10 08:45 | XMS_ITS | Encounter Summary ---
[facility] Address [address] [place] [address] Care Team Providers Care Systems Navigator Name Role Phone Ward Kennedy MD Primary Care Provider + Reason for Visit * Reason Comments Medicare Wellness-subsequent Encounter Details Date Type Department Care Team (Late st Contact Info) Description 06/10/2025 9:45 AM EDT Office Visit [facility] [address] [place] [address] Ward Kennedy MD [address] [place] [address] Medicare annual wellness visit, subsequent (Primary Dx); Essential hypertension; Hypercholesterolemia; Age-related osteoporosis without current pathological fracture Social History Tobacco Use Types Packs/Day Years Used Date Smoking Tobacco: Former Cigarettes Q uit: 2020 Smokeless Tobacco: Never Tobacco Cessation:Counseling Given: Not Answered Alcohol Use Standard Drinks/Week Comments Yes 0 (1 standard drink = 0.6 oz pur e alcohol) PHQ-2 Answer Date Recorded Retired PHQ-9: Brief Depression Severity Measure Score 0 05/30/2023 PHQ-2 Answer Date Recorded Patient Health Questionnaire-2 Score 0 06/10/2025 Comments Unknown Sex and Gender Information Value Date Recorded Sex Assigned at Female 06/09/2025 10:54 AM EDT Legal Sex Female 8:07 AM EDT Gender Identity Not on file Sexual Orientation Not on file documented as of this encounter Last Filed Vital Signs Vital Sign Reading Time Taken Comments Blood Pressure 122/72 06/10/2025 9:04 AM EDT Pulse 80 06/10/2025 9:04 AM EDT Temperature 36.5 C (97.7 F) 06/10/2025 9:04 AM EDT Respiratory Rate 14 06/10/2025 9:04 AM EDT Oxygen Saturation 95% 06/10/2025 9:04 AM EDT Inhaled Oxygen Concentration - - Weight 47.2 kg (104 lb) 06/10/2025 9:04 AM EDT Height 165.1 cm (5' 5 ) 06/10/2025 9:04 AM EDT Body Mass Index 17.31 06/10/2025 9:04 AM EDT documented in this encounter Functional Status documented as of this encounter Progress Notes * Ward Kennedy MD - 06/10/2025 9:45 AM EDTAssociated Problem(s): Essential hypertension Orders: amLODIPine (NORVASC) 10 MG tablet; Take 1 tablet by mouth Daily. telmisartan (MICARDIS) 80 MG tablet; Take 1 tablet by mouth Daily. * Ward Kennedy MD - 06/10/2025 9:45 AM EDTAssociated Problem(s): Hypercholesterolemia Orders: atorvastatin (LIPITOR) 20 MG tablet; Take 1 tablet by mouth Daily. * Ward Kennedy MD - 06/10/2025 9:45 AM EDTAssociated Problem(s): Age- related osteoporosis without current pathological fracture * Ward Kennedy MD - 06/10/2025 9:45 AM EDT Images from the original note were not included. Subjective The ABCs of the Annual Wellness Visit Medicare Wellness Visit Loreta Albert is a 80 y.o. patient who presents for a Medicare Wellness Visit. The following portions of the patient's history were reviewed and updated as appropriate: allergies, current medications, past family history, past medical history, past social history, past surgical history, and problem list. Compared to one year ago, the patient's physical health is the same. Compared to one year ago, the patient's mental health is the same. Recent Hospitalizations: She was not admitted to the hospital during the last year. Current Medical Providers: Patient Care Team: Ward Kennedy MD as PCP - General (Family Medicine) Outpatient Medications Prior to Visit Medication Sig Dispense Refill denosumab (PROLIA) 60 MG/ML solution prefilled syringe syringe Inject 1 mL under the skin into the appropriate area as directed Every 6 (Six) Months. 1 mL 1 amLODIPine (NORVASC) 10 MG tablet Take 1 tablet by mouth Daily. 90 tablet 3 atorvastatin (LIPITOR) 20 MG tablet Take 1 tablet by mouth Daily. 90 tablet 3 telmisartan (MICARDIS) 80 MG tablet Take 1 tablet by mouth Daily. 90 tablet 3 No facility-administered medications prior to visit. No opioid medication identified on active medication list. I have reviewed chart for other potential high risk medication/s and harmful drug interactions in the elderly. Aspirin is not on active medication list. Aspirin use is not indicated based on review of current medical condition/s. Risk of harm outweighs potential benefits. . Patient Active Problem List Diagnosis Panlobular emphysema Essential hypertension Copy of advanced directive obtained from patient Age-related osteoporosis without current pathological fracture Hypercholesterolemia Right inguinal hernia Female genital prolapse Advance Care Planning Advance Directive is on file. ACP discussion was held with the patient duringthis visit. Patient has an advance directive in EMR which is still valid. Objective Vitals: 06/10/25 0904 BP: 122/72 Pulse: 80 Resp: 14 Temp: 97.7 ??F (36.5 ??C) SpO2: 95% Weight: 47.2 kg (104 lb) Height: 165.1 cm (65 ) PainSc: 0-No pain Estimated body mass index is 17.31 kg/m?? as calculated from the following: Height as of this encounter: 165.1 cm (65 ). Weight as of this encounter: 47.2 kg (104 lb). BMI is below normal parameters (malnutrition). Recommendations: treating the underlying disease process Does the patient have evidence of cognitive impairment? Maybe. reports some memory impairment with cooking. Patient has never used recipes but admits meals she cooks infrequently are more challenging to recreate Health Risk Assessment Smoking Status: Social History Tobacco Use Smoking Status Former Current packs/day: 0.00 Types: Cigarettes Quit date: 2020 Years since quittin.7 Smokeless Tobacco Never Alcohol Consumption: Social History Substance and Sexual Activity Alcohol Use Yes Fall Risk Screen STEADI Fall Risk Assessment was completed, and patient is at LOW risk for falls.Assessment completed on:06/10/2025 Depression Screening Little interest or pleasure in doing things? Not at all Feeling down, depressed, or hopeless? Not at all PHQ-2 Total Score 0 Health Habits and Functional and Cognitive Screenin06/09/2025 11:01 AM Functional & Cognitive Status Do you have difficulty preparing food and eating? No Do you have difficulty bathing yourself, getting dressed or grooming yourself? No Do you have difficulty using the toilet? No Do you have difficulty moving around from place to place? No Do you have trouble with steps or getting out of a bed or a chair? No Current Diet Well Balanced Diet Dental Exam Up to date Eye Exam Up to date Exercise (times per week) 7 times per week Current Exercises Include No Regular Exercise;Gardening;House Cleaning;Yard Work Do you need help using the phone? No Are you deaf or do you have serious difficulty hearing? Yes Do you need help to go to places out of walking distance? No Do you need help shopping? No Do you need help preparing meals? No Do you need help with housework? No Do you need help with laundry? No Do you need help taking your medications? No Do you need help managing money? No Do you ever drive or ride in a car without wearing a seat belt? No Have you felt unusual fatigue (could be tiredness), stress, anger or loneliness in the last month? No Who do you live with? Spouse If you need help, do you have trouble finding someone available to you? No Have you been bothered in the last four weeks by sexual problems? No Do you have difficulty concentrating, remembering or making decisions? No Age-appropriate Screening Schedule: Refer to the list below for future screening recommendations based on patient's age, sex and/or medical conditions. Orders for these recommended tests are listed in the plan section. The patient has been provided with a written plan. Health Maintenance List Health Maintenance Topic Date Due Pneumococcal Vaccine 50+ (1 of 2 - PCV) 1964 TDAP/TD VACCINES (1 - Tdap) Never done DXA SCAN 12/20/2024 COVID-19 Vaccine ( season) 2025 (Originally 05/19/2025) INFLUENZA VACCINE 06/24/2025 (Originally 04/18/2025) LIPID PANEL 12/02/2025 ANNUAL WELLNESS VISIT 06/10/2026 RSV Vaccine - Adults Completed ZOSTER VACCINE Completed HEPATITIS C SCREENING Discontinued COLORECTAL CANCER SCREENING Discontinued [facility] Preventative Services Quick Reference Risk Factors Identified During Encounter Immunizations Discussed/Encouraged: Influenza and COVID19 Dental Screening Recommended Vision Screening Recommended Chronic Care with PCP every 6 months The above risks/problems have been discussed with the patient. Pertinent information has been shared with the patient in the After Visit Summary. An After Visit Summary and PPPS were made available to the patient. Follow Up: Next Medicare Wellness visit to be scheduled in 1 year. Assessment & Plan Medicare annual wellness visit, subsequent Essential hypertension Orders: amLODIPine (NORVASC) 10 MG tablet; Take 1 tablet by mouth Daily. telmisartan (MICARDIS) 80 MG tablet; Take 1 tablet by mouth Daily. Hypercholesterolemia Orders: atorvastatin (LIPITOR) 20 MG tablet; Take 1 tablet by mouth Daily. Age-related osteoporosis without current pathological fracture Follow Up: Return in about 6 months (around 12/08/2025) for Next scheduled follow up. documented in this encounter Plan of Treatment Upcoming Encounters Date Type Department Care Team (Late st Contact Info) Description 12/09/2025 10:00 AM EDT Office Visit [facility] [address] [place] [address] Ward Kennedy MD [address] [place] [id number] documented as of this encounter Visit Diagnoses Diagnosis Medicare annual wellness visit, subsequent- Primary Essential hypertension Unspecified essential hypertension Hypercholesterolemia Pure hypercholesterolemia Age-related osteoporosis without current pathological fracture documented in this encounter Care Teams Systems Navigator Relationship Specialty Start Date End Date Ward Kennedy MD [address] [place] [address] PCP - General Family Medicine 05/18/22 documented as of this encounter
--- OUTSIDE RECORDS SUMMARY | 2025-06-18 10:00 | XMS_ITS | Encounter Summary ---
[facility] Address [address] [place] [address] Care Team Providers Care Wagon Driller Name Role Phone Ward Kennedy MD Primary Care Provider + Encounter Details Date Type Department Care Team (Late Contact Info) Description 06/18/2025 11:00 AM EDT Flu Shot [facility] [address] [facility] [place] [address] Need for influenza vaccination (Primary Dx) Social History Tobacco Use Types Packs/Day Years Used Date Smoking Tobacco: Former Cigarettes Q uit: 2020 Smokeless Tobacco: Never Alcohol Use Standard Drinks/Week Comments Yes 0 [...] on file documented as of this encounter Plan of Treatment Upcoming Encounters Date Type Department Care Team (Late Contact Info) Description 12/09/2025 10:00 AM EDT Office Visit [facility] [address] [facility] [place] [address] Ward Kennedy MD [address] [facility] [place] [address] documented as of this encounter Visit Diagnoses Diagnosis Need for influenza vaccination- Primary Need for prophylactic vaccination and inoculation against influenza documented in this encounter Care Teams Wagon Driller Relationship Specialty Start Date End Date Ward Kennedy MD [address] [place] [address] PCP - General Family Medicine 05/18/22 documented as of this encounter
--- OUTSIDE RECORDS SUMMARY | 2025-07-25 09:08 | XMS_ITS | Clinical Summary ---
[facility] Address [address] [place] [address] Care Team Providers Care Child Care Lead Teacher Name Role Phone Ward Kennedy MD Primary Care Provider + Allergies Active Allergy Reactions Criticality Noted Date Comments Meperidine Hallucinations 05/18/2022 Medications denosumab (PROLIA) 60 MG/ML solution prefilled syringe syringeIndicatio ns:Age-related osteoporosis without current pathological fracture Inject 1 mL under the skin into the appropriate area as directed Every 6 (Six) Months. 1 mL 1 4 Active amLODIPine (NORVASC) 10 MG tabletIndication s:Essential hypertension Take 1 tablet by mouth Daily. 90 tablet 3 5 Active atorvastatin (LIPITOR) 20 MG tabletIndication s:Hypercholester olemia Take 1 tablet by mouth Daily. 90 tablet 3 5 Active telmisartan (MICARDIS) 80 MG tabletIndication s:Essential hypertension Take 1 tablet by mouth Daily. 90 tablet 3 5 Active Active Problems Problem Noted Date Diagnosed Date Right inguinal hernia 12/07/2023 Female genital prolapse 12/07/2023 Hypercholesterolemia 11/15/2022 Assessment & Plan (06/10/2025 9:50 AM EDT): Orders: atorvastatin (LIPITOR) 20 MG tablet; Take 1 tablet by mouth Daily. Assessment & Plan (06/04/2024 9:58 AM EDT): Assessment & Plan (12/07/2023 12:25 PM EDT): Lipid abnormalities are stable Plan: Continue same medication/s without change. Discussed medication dosage, use, side effects, and goals of treatment in detail. Counseled patient on lifestyle modifications to help control hyperlipidemia. Patient Treatment Goals: LDL goal is under 100 Followup in 6 months. Assessment & Plan (11/15/2022 8:56 AM EST): Lipid abnormalities are improving with treatment. Pharmacotherapy as ordered. Lipids will be reassessed in 1 year. Panlobular emphysema 05/18/2022 Assessment & Plan (12/07/2023 12:25 PM EDT): Stable. Condition is asymptomatic. Assessment & Plan (11/15/2022 8:56 AM EST): COPD is stable. Asymptomatic Essential hypertension 05/18/2022 Assessment & Plan (06/10/2025 9:50 AM EDT): Orders: amLODIPine (NORVASC) 10 MG tablet; Take 1 tablet by mouth Daily. telmisartan (MICARDIS) 80 MG tablet; Take 1 tablet by mouth Daily. Assessment & Plan (06/04/2024 9:58 AM EDT): Assessment & Plan (12/07/2023 12:24 PM EDT): Hypertension is stable and controlled Continue current treatment regimen. Blood pressure will be reassessed in 6 months. Assessment & Plan (11/15/2022 8:55 AM EST): Hypertension is improving with treatment. Continue current treatment regimen. Dietary sodium restriction. Blood pressure will be reassessed at the next regular appointment. Copy of advanced directive obtained from patient 05/18/2022 Age-related osteoporosis wit hout current pathological fracture 05/18/2022 Assessment & Plan (06/10/2025 9:50 AM EDT): Assessment & Plan (11/15/2022 8:57 AM EST): DEXA scan ordered to be performed at [facility] Likely return to [facility] every 6 months Encounters Date Type Department Care Team Description 07/15/2025 Telephone [facility] [address] [place] [phone] Ward Kennedy MD CALLBACK REQUEST 06/18/2025 11:00 AM EDT Flu Shot [facility] [address] [place] [address] Need for influenza vaccination (Primary Dx) 06/18/2025 Travel 06/10/2025 9:45 AM EDT Office Visit [facility] [address] [place] [phone] Ward Kennedy MD Medicare annual wellness visit, subsequent (Primary Dx); Essential hypertension; Hypercholesterolemia; Age-related osteoporosis without current pathological fracture 06/10/2025 Travel from Last 3 Months Immunizations Immunization Administration Dates Next Due Arexvy (RSV, Adults 60+ yrs) 06/01/2023 COVID-19 (MODERNA) 1st,2nd,3 rd Dose Monovalent 06/23/2021,11/20/2020,10/23/2020 COVID-19 (MODERNA) Monovalen t Original Booster 01/31/2022 Fluad Quad 65+ 06/01/2023 Fluzone (or Fluarix & Flulav al for VFC) >6mos 06/13/2022 Fluzone High-Dose 65+YRS 06/18/2025,06/19/2024,0 05/17/2016 Influenza, Unspecified 06/13/2022 Pneumococcal, Unspecified 06/19/2023 Shingrix 10/10/2022,07/01/2022 Family History Medical History Relation Name Comments Hypertension Father Arthritis Mother Cancer Mother Hodgkin's Hypertension Mother Tuberculosis Paternal Aunt Relation Name Status Comments Father Mother Paternal Aunt Social History Tobacco Use Types Packs/Day Years [...] on file Sexual Orientation Not on file Last Filed Vital Signs Vital Sign Reading [...] Mass Index 17.31 06/10/2025 9:04 AM EDT Plan of Treatment Upcoming Encounters Date Type Department Care Team (Late st Contact Info) Description 12/09/2025 10:00 AM EDT Office Visit [facility] [address] [place] [address] Ward Kennedy MD [address] [place] [address] Health Maintenance Due Date Last Done Comments Pneumococcal Vaccine 50+ (1 of 2 - PCV) 1964 06/19/2023 TDAP/TD VACCINES (1 - Tdap) 1964 DXA SCAN 12/20/2024 12/20/2022, 04/0 12/2022, 12/04/2020, Additional history exists COVID-19 Vaccine (8 - Modern a risk season) 2025 06/19/2024, 07/14/2023, 06/08/2022, Additional history exists LIPID PANEL 12/02/2025 12/02/2024, 11/17, 11/15/2022, Additional history exists ANNUAL WELLNESS VISIT 06/10/2026 06/10/2025 , 06/10/2025, 06/04/2024, Additional history exists COLONOSCOPY Discontinued 12/17/2020 COLORECTAL CANCER SCREENING Discontinued ZOSTER VACCINE Completed 10/10/2022, 07/01/2022 RSV Vaccine - Adults Completed 06/01/2023 INFLUENZA VACCINE Completed 06/18/2025, , 06/19/2024, Additional history exists COLOGUARD Discontinued COLON CANCER SCREENING 5 YEA [address]MO[address] Dis[address] CT COLONOGRAPHY Discontinued FECAL OCCULT BLOOD TEST Discontinued FIT Testing (1 year) Discontinued HEPATITIS C SCREENING Discontinued Procedures Procedure Name Priority Date/Time Associated Diagnosis Comments LIPID PANEL Routine 12/02/2024 11:06 AM EDT Hypercholesterolemia SCANNED - DEXA 12/20/2022 from Last 3 Months or Most Recently Relevant to Health Maintenance Results * (ABNORMAL) Lipid Panel (12/02/2024 11:06 AM EDT) Total Cholesterol 198 0 - 200 mg/dL [facility] Comment: Cholesterol Reference Ranges (U.S. Department of Health and Human Services ATP III Classifications) Desirable <200 mg/dL Borderline High 200-239 mg/dL High Risk >240 mg/dL Triglyceride Reference Ranges (U.S. Department of Health and Human Services ATP III Classifications) Normal <150 mg/dL Borderline High 150-199 mg/dL High 200-499 mg/dL Very High >500 mg/dL HDL Reference Ranges (U.S. Department of Health and Human Services ATP III Classifications) Low <40 mg/dl (major risk factor for CHD) High >60 mg/dl ('negative' risk factor for CHD) LDL Reference Ranges (U.S. Department of Health and Human Services ATP III Classifications) Optimal <100 mg/dL Near Optimal 100-129 mg/dL Borderline High 130-159 mg/dL High 160-189 mg/dL Very High >189 mg/dL LDL is calculated using the NIH LDL-C calculation. Triglycerides 47 0 - 150 mg/dL [facility] HDL Cholesterol 109(H) 40 - 60 mg/dL [facility] VLDL Cholesterol Jaciel 9 5 - 40 mg/dL [facility] LDL Chol Calc (NIH) 80 0 - 100 mg/dL [facility] Blood 12/02/2024 11:0 6 AM EDT 12/02/2024 Narrative [facility] ([facility]) - 12/03/2024 3:07 AM EDT Performed at: [address] [place] [id number] Air Quality Manager: Torres Henson MD, Phone: [phone] Patient Fasting: Y Ward Kennedy MD LAB BLOOD ORDERABLES Fin al Result [facility] ([facility]) [address] [place] [address], [facility] [address] [place] [address], [place] [phone] * SCANNED - DEXA (12/20/2022) Anatomical Region Laterality Modality Other Ward Kennedy MD CHART REVIEW TABS Fin al Result from Last 3 Months or Most Recently Relevant to Health Maintenance Insurance MEDICARE A & B Member Subscriber Plan / Payer (Ef fective 2011-Present) Name:Loreta Lyn Member ID:[id number] Relation to Subscriber:Self Name:Loreta Lyn Subscriber ID:[id number] Payer ID:[id number] Group ID:Not on file Type:Not on file Address: [facility] [id number] [address] Advance Directives Documents on File Type Date Recorded Patient Aerial Lineman Expl anation POWER OF INSPECTING AND TESTING LEAD HAND - SCAN 05/18/2022 11:39 AM [employer], [employer], 02/20/2019 Care Teams Child Care Lead Teacher Relationship Specialty Start Date End Date Ward Kennedy MD [address] [place] [address] PCP - General Family Medicine 05/18/22
--- OUTSIDE RECORDS SUMMARY | 2025-07-25 09:08 | XMS_ITS | Encounter Summary ---
[facility] Address [address] [place] [address] Care Team Providers Care Logging Tractor Operator Name Role Phone Ward Kennedy MD Primary Care Provider + Encounter Details Date Type Department Care Team (Latest Contact Info) Description 06/10/2025 Travel Social History Tobacco Use Types Packs/Day Years [...] on file documented as of this encounter Functional Status documented as of this encounter Plan of Treatment Upcoming Encounters Date Type Department Care Team (Late st Contact Info) Description 12/09/2025 10:00 AM EDT Office Visit [facility] [address] [facility] [place] [address] Ward Kennedy MD [address] [place] [address] documented as of this encounter Visit Diagnoses Not on filedocumented in this encounter Care Teams Logging Tractor Operator Relationship Specialty Start Date End Date Ward Kennedy MD [address] [place] [address] PCP - General Family Medicine 05/18/22 documented as of this encounter
--- OUTSIDE RECORDS SUMMARY | 2025-07-25 09:08 | XMS_ITS | Encounter Summary ---
[facility] Address [address] [place] [address] Care Team Providers Care Machinist Instructor Name Role Phone Ward Kennedy MD Primary Care Provider + Encounter Details Date Type Department Care Team (Latest Contact Info) Description 06/18/2025 Travel Social History Tobacco Use Types Packs/Day [...] Description 12/09/2025 10:00 AM EDT Office Visit [facility] [address] [facility] [place] [address] Ward Kennedy MD [address] [place] [address] documented as of this encounter Visit Diagnoses Not on filedocumented in this encounter Care Teams Machinist Instructor Relationship Specialty Start Date End Date Ward Kennedy MD [address] [place] [address] PCP - General Family Medicine 05/18/22 documented as of this encounter
--- OUTSIDE RECORDS SUMMARY | 2025-07-25 09:08 | XMS_ITS | Encounter Summary ---
[facility] [address] [place] [address] Care Team Providers Care Electric Tool Repairer Name Role Phone Ward Childers MD Primary Care Provider + Reason for Visit * Reason Onset Date Comments CALLBACK REQUEST 07/15/2025 Encounter Details Date Type Department Care Team (Late st Contact Info) Description 07/15/2025 Telephone [facility] [address] [place] [address] Ward Childers MD [address] [place] [address] CALLBACK REQUEST Social History Tobacco Use Types Packs/Day Years [...] on file documented as of this encounter Miscellaneous Notes * Telephone Encounter - Mindy Perez RegSched Rep - 07/15/2025 3:31 PM EDT Caller: Loreta Albert Relationship: Self Best call back number: Telephone Information: What is the best time to reach you: ANY Who are you requesting to speak with (clinical staff, provider, specific staff member): DR CHILDERS What was the call regarding: PATIENT IS REQUESTING A CALL BACK FROM HER PROVIDER SHE WANTED TO DISCUSS SOME PERSONAL THINGS AND SAY GOODBYE SHE WILL BE MOVING OUT OF THE STATE. PLEASE CALL TO DISCUSS documented in this encounter Plan of Treatment Upcoming Encounters Date Type Department Care Team (Late st Contact Info) Description 12/09/2025 10:00 AM EDT Office Visit [facility] [address] [facility] [place] [address] Ward Childers MD [address] [place] [id number] documented as of this encounter Visit Diagnoses Not on filedocumented in this encounter Care Teams Electric Tool Repairer Relationship Specialty Start Date End Date Ward Childers MD [address] [place] [id number] PCP - General Family Medicine 05/18/22 documented as of this encounter
[2025-07-25 09:12] VITALS: BP 126/61; PULSE 74; O2SAT 96
[2025-07-25] MEDS: DENOSUMAB 60 MG/ML SYRINGE SUBCUT (09:12)
== END 2025-07-25 23:59 | disposition home or self-care (01) ==
LOC: INF 09:00
PROVIDERS: PCP Family Medicine; Visit Provider Family Medicine
DX: M81.0 Age-related osteoporosis without current pathological fracture (principal)
CPT/HCPCS: 96372; J0897